=== PATIENT | male | born 1985 | race Caucasian/White ===

== ENCOUNTER → 2016-09-11 | Outpatient (CLI) | payer BC ==
--- NOTE | 2016-09-12 04:02 | REP ---
Clinical: Left testicular pain. Technique: Real time vázquez scale and color Doppler evaluation of the scrotum using linear high frequency transducer. Findings: The bilateral testicles and epididymi are relatively normal in contour, size, echogenicity, and vascularity without evidence for torsion, infectious/inflammatory process, or mass lesion. Incidental note is made of two right epididymal head cysts measuring 2.3 mm and 7.3 mm maximal diameter as well as three left epididymal head cysts measuring 5.4 mm, 4.4 mm, and 8.5 mm maximal diameter. Small insignificant hydroceles noted. Left-sided pain may be secondary to varicoceles measuring up to 3.6 mm maximal diameter. Right testicle measures 4.3 x 2.3 x 3.5 cm. Left testicle measures 4.8 x 2.2 x 3.4 cm. Impression: Mild left-sided partially thrombosed varicoceles measuring up to 3.6 mm maximal diameter. Few bilateral epididymal cysts. Normal appearance to the bilateral testicles. Signed by Ramon Sky MD 09/12/2016 03:53 A
== END ==
LOC: M RAD 14:56
PROVIDERS: ATTEND Physician Assistant
DX: N50.812 Left testicular pain (principal); N50.3 Cyst of epididymis

== ENCOUNTER → 2019-07-28 | Outpatient (CLI) | payer BC ==
[~2019-07-28] MED LIST: LIDOCAINE 1% MDV 20ML VIAL As Ordered ONE; TRIAMCINOLONE ACETONIDE SUSP 40 MG/ML VIAL (J3301) As Ordered ONE
--- NOTE | 2019-07-28 17:54 | REP ---
Reason For Exam/Comment: Bicipital tendonitis of the right shoulder Procedure: Right biceps tendon sheath arthrocentesis The procedure was performed by LIYAH Weir, under the direct supervision of Dr. Billy. The benefits and risks including but not limited to pain, infection, bleeding and anaphylaxis were explained to the patient and informed consent was obtained both verbally and written. Directly prior to the start of the procedure, a formal timeout was completed in the procedure room. The right biceps tendon was localized using ultrasound guidance. The skin was prepped and draped in the usual sterile fashion. 5 mL of 1% lidocaine 10 mg/ml was used as a local anesthetic. Using ultrasound guidance this 25-gauge needle was advanced to the right biceps tendon sheath. A 3 mL solution containing a 2 mL 1% lidocaine 10 mg/ml and , 1 ml of Kenalog 40 mg/ml was injected into the biceps tendon sheath. The needle was removed and hemostasis was achieved. The patient tolerated the procedure well and there were no immediate complications. Reviewed by LIYAH Mendoza 07/28/2019 05:12 P Electronically Signed by Sav Billy MD 07/28/2019 05:44 P
== END ==
LOC: M IRPRO 13:37
PROVIDERS: ATTEND Orthopaedic Surgery
DX: M75.21 Bicipital tendinitis, right shoulder (principal)
CPT/HCPCS: 20550; 76942; J3301

== ENCOUNTER → 2022-06-28 | Outpatient (CLI) | payer BC | LOC: M SOG 08:17 | PROVIDERS: ATTEND Orthopaedic Surgery Adult Reconstructive Orthopaedic Surgery | DX: M25.552 Pain in left hip (principal); Z53.9 Procedure and treatment not carried out, unspecified reason ==

== ENCOUNTER → 2022-07-10 | Outpatient (CLI) | payer BC | LOC: M SOG 07:54 | PROVIDERS: ATTEND Orthopaedic Surgery Adult Reconstructive Orthopaedic Surgery | DX: M25.552 Pain in left hip (principal); Z53.9 Procedure and treatment not carried out, unspecified reason ==

== ENCOUNTER → 2022-07-18 | Outpatient (CLI) | payer BC | LOC: M SOG 08:52 | PROVIDERS: ATTEND Orthopaedic Surgery Adult Reconstructive Orthopaedic Surgery | DX: M25.552 Pain in left hip (principal) ==

== ENCOUNTER 2025-04-18 09:44 | Emergency (ER) | payer BC ==
[~2025-04-18] VITALS: Ht 172.7 cm; Wt 122.3 kg
[2025-04-18] MEDS ORDERED: VYVA70CA3 PO (09:53)
[2025-04-18 10:35] LABS: BASO # 0.0 10^3/uL (0.0-0.2); BASO % 0.3 % (0.0-1.0); EOS # 0.1 10^3/uL (0.0-0.5); EOS % 1.1 % (0.0-3.0); LYMPH # 2.3 10^3/uL (1.5-5.0); LYMPH % 20.3 % (24.0-44.0); MONO # 1.5 10^3/uL (0.0-0.8); MONO % 13.2 % (2.0-8.0); NEUTROPHILS # 7.3 10^3/uL (1.5-8.5); NEUTROPHILS % 64.7 % (36.0-66.0); PLATELET COUNT, AUTOMATED 194 10^3/uL (150-450)
[2025-04-18 11:07] LABS: ALT/SGPT 33 U/L (7.0-40); AST/SGOT 25 U/L (<34); CALCIUM LEVEL 8.8 MG/DL (8.5-10.1); CARBON DIOXIDE LEVEL 28 MMOL/L (20-31); CHLORIDE LEVEL 104 MMOL/L (98-107); CREATININE FOR GFR 0.85 MG/DL (0.70-1.30); GLOMERULAR FILTRATION RATE > 90.0 (>60); POTASSIUM SERUM 4.0 MMOL/L (3.5-5.1); SODIUM LEVEL 141 MMOL/L (136-145)
[2025-04-18] MEDS ORDERED: HOME MED LIST COMPLETE! XX SCH (11:25)
[2025-04-18] MEDS: NS (Normal Saline) 0.9% 1,000 ML IV ONE (11:27)
[2025-04-18] MEDS ORDERED: ISOVUE-370 76% 100 ML VIAL As Ordered ONE (11:38)
[2025-04-18] MEDS: KETOROLAC 30 MG/ML 1 ML VIAL IV ONE (13:37)
[2025-04-18 13:57] LABS: KETONE, URINE AUTO RFX NEGATIVE (NEGATIVE); LEUKOCYTE ESTERASE UR AUTO RFX NEGATIVE (NEGATIVE); NITRITE, URINE AUTO RFX NEGATIVE (NEGATIVE); RBC, URINE AUTO RFX 0 /HPF (0-3); SQUAM EPITHELIAL CELL UR AURFX 0 /HPF (0-6); WBC, URINE AUTO RFX 0 /HPF (0-3)
[2025-04-18] MEDS ORDERED: METO5TAB2 PO (13:59)
[2025-04-18] MEDS ORDERED: CIPR500T39 PO (13:59)
[2025-04-18] MEDS ORDERED: KETO-204 PO (13:59)
[2025-04-18] MEDS ORDERED: METR-265 PO (14:01)
[2025-04-18 14:15] VITALS: O2SAT 99
[2025-04-18 14:18] VITALS: BP 122/70
[2025-04-18 14:23] VITALS: TEMP 97.5
[2025-04-18] MEDS: CIPROFLOXACIN 500 MG TABLET PO ONE (14:23)
== END 2025-04-18 14:25 | disposition home or self-care (01) ==
LOC: M ED 09:44
DX: K57.32 Diverticulitis of large intestine without perforation or abscess without bleeding (principal); J45.909 Unspecified asthma, uncomplicated
CPT/HCPCS: 74177; 80048; 80076; 81001; 83690; 85025; 96361; 96374; 99284; J1885; Q9967